=== PATIENT | male | born 1940 | race Two or more races ===

== ENCOUNTER 2022-05-11 08:00 | Inpatient (IN) | payer OTHER ==
[~2022-05-11] VITALS: Ht 167.6 cm; Wt 68.0 kg
[2022-05-11] MEDS ORDERED: CHILDREN'S ASPI81 MG PO (08:32)
[2022-05-11] MEDS ORDERED: INDAPAMIDE1.25 MG PO (08:32)
[2022-05-11] MEDS ORDERED: ATORVASTATIN CA10 MG PO (08:33)
[2022-05-11] MEDS ORDERED: VERELAN180 MG PO (08:33)
[2022-05-11] MEDS ORDERED: D3 + K2 DOTS 11 EACH PO (08:34)
[2022-05-11] MEDS ORDERED: METFORMIN HCL500 M3 PO (08:34)
[2022-05-12] MEDS ORDERED: COLACE100 MG PO (08:05)
[2022-05-12] MEDS ORDERED: NEURONTIN800 MG PO (08:05)
[2022-05-12] MEDS ORDERED: AMOX-CLAV 875-1 EACH PO (08:05)
[2022-05-12] MEDS ORDERED: MEDROLPACK PO (08:05)
[2022-05-12] MEDS ORDERED: PERCOCET 5-3251 EACH PO (08:05)
== END 2022-05-14 11:37 | disposition home or self-care (01) | DRG 455 ==
LOC: SURH 05-12 08:00 → O/R 05-12 09:07 → PED 05-12 09:07 → SURH 05-12 10:45 → PED 05-12 16:18
PROVIDERS: ADMIT Orthopaedic Surgery Orthopaedic Surgery of the Spine; ATTEND Orthopaedic Surgery Orthopaedic Surgery of the Spine
PROC: 0SG10A0 Fusion of 2 or more Lumbar Vertebral Joints with Interbody Fusion Device, Anterior Approach, Anterior Column, Open Approach (ICD-10-PCS; principal; 2022-05-12)
PROC: 0SG1071 Fusion of 2 or more Lumbar Vertebral Joints with Autologous Tissue Substitute, Posterior Approach, Posterior Column, Open Approach (ICD-10-PCS; 2022-05-12)
PROC: 0ST20ZZ Resection of Lumbar Vertebral Disc, Open Approach (ICD-10-PCS; 2022-05-12)
PROC: 07DR0ZZ Extraction of Iliac Bone Marrow, Open Approach (ICD-10-PCS; 2022-05-12)
DX: M43.16 Spondylolisthesis, lumbar region (principal); M41.56 Other secondary scoliosis, lumbar region; M51.36 Other intervertebral disc degeneration, lumbar region; I10 Essential (primary) hypertension; E11.9 Type 2 diabetes mellitus without complications

== ENCOUNTER 2022-05-21 20:24 | Emergency (ER) | payer OTHER ==
[~2022-05-21] VITALS: Ht 167.6 cm; Wt 68.0 kg
[~2022-05-21 20:24] MED LIST: AMOX-CLAV 875-1 EACH PO; ATORVASTATIN CA10 MG PO; CHILDREN'S ASPI81 MG PO; COLACE100 MG PO; D3 + K2 DOTS 11 EACH PO; INDAPAMIDE1.25 MG PO; MEDROLPACK PO; METFORMIN HCL500 M3 PO; NEURONTIN800 MG PO; PERCOCET 5-3251 EACH PO; VERELAN180 MG PO
== END 2022-05-22 01:26 | disposition home or self-care (01) ==
LOC: ER 20:24
DX: T50.991A Poisoning by other drugs, medicaments and biological substances, accidental (unintentional), initial encounter (principal); R42 Dizziness and giddiness; Y92.89 Other specified places as the place of occurrence of the external cause; I10 Essential (primary) hypertension

== ENCOUNTER 2022-06-13 08:58 | Outpatient (CLI) | payer OTHER | END 2022-06-13 09:00 | disposition home or self-care (01) | LOC: RAD 08:58 | PROVIDERS: ATTEND Orthopaedic Surgery Orthopaedic Surgery of the Spine | DX: Z98.1 Arthrodesis status (principal) ==

== ENCOUNTER 2022-06-15 14:18 | Emergency (ER) | payer OTHER ==
[~2022-06-15] VITALS: Ht 165.1 cm; Wt 65.8 kg
== END 2022-06-15 18:48 | disposition home or self-care (01) ==
LOC: ER 14:18
DX: M47.814 Spondylosis without myelopathy or radiculopathy, thoracic region (principal); M54.6 Pain in thoracic spine

== ENCOUNTER 2022-06-24 13:04 | Inpatient (IN) | payer OTHER ==
[~2022-06-24] VITALS: Ht 162.6 cm; Wt 63.5 kg
[2022-06-24] MEDS ORDERED: MEGESTROL ACETA40 MG PO (13:32)
[2022-06-24] MEDS ORDERED: SERTRALINE20 MG/1 ML PO (13:33)
[2022-06-24] MEDS ORDERED: ENALAPRIL MALEA10 MG PO (13:34)
== END 2022-06-26 17:40 | disposition expired | DRG 208 ==
LOC: ER 13:04 → ICU-2 19:45
PROVIDERS: ADMIT Internal Medicine; ATTEND Internal Medicine
PROC: 0W9930Z Drainage of Right Pleural Cavity with Drainage Device, Percutaneous Approach (ICD-10-PCS; 2022-06-25)
PROC: 5A1945Z Respiratory Ventilation, 24-96 Consecutive Hours (ICD-10-PCS; principal; 2022-06-26)
PROC: 0BH17EZ Insertion of Endotracheal Airway into Trachea, Via Natural or Artificial Opening (ICD-10-PCS; 2022-06-26)
DX: J90 Pleural effusion, not elsewhere classified (principal); A41.9 Sepsis, unspecified organism; J96.00 Acute respiratory failure, unspecified whether with hypoxia or hypercapnia; R65.21 Severe sepsis with septic shock; N17.9 Acute kidney failure, unspecified; N39.0 Urinary tract infection, site not specified; J98.11 Atelectasis; E87.2 Acidosis; I95.9 Hypotension, unspecified; E86.9 Volume depletion, unspecified; Z66 Do not resuscitate; E87.5 Hyperkalemia; I46.8 Cardiac arrest due to other underlying condition; E11.9 Type 2 diabetes mellitus without complications; Z79.84 Long term (current) use of oral hypoglycemic drugs